=== PATIENT | female | born 1975 | race Caucasian/White ===

== ENCOUNTER 2021-10-09 07:37 | Outpatient (CLI) | payer OTHER, SELFPAY ==
--- NOTE | 2021-10-09 08:45 | W.ANESCHARGE ---
Anesthesia Charges Start Date/Time Anesthesia Start Date: 10/09/21 Anesthesia Start Time: 08:20 Stop Date/Time Anesthesia Stop Date: 10/09/21 Anesthesia Stop Time: 08:42 Summary Emergency: No
== END 2021-10-09 07:38 | disposition home or self-care (01) ==
LOC: OP CLINIC 07:38
PROVIDERS: PCP Family Medicine; Visit Provider Internal Medicine
DX: Z12.11 Encounter for screening for malignant neoplasm of colon (principal); K63.5 Polyp of colon
CPT/HCPCS: 45380; 811; 88305; J2704

== ENCOUNTER 2021-11-17 15:06 | Outpatient (CLI) | payer OTHER, SELFPAY ==
--- NOTE | 2021-11-17 15:20 | CRLHL7_ITS ---
For Patients: As a result of the Century Cures Act, medical imaging exams and procedure reports are released immediately into your electronic medical record. You may view this report before your referring provider. If you have questions, please contact your health care provider. BILATERAL MAMMOGRAM WITH COMPUTER-AIDED DETECTION AND TOMOSYNTHESIS TECHNIQUE: CC and MLO views were obtained. These mammographic images have been obtained using full-field digital technique. These mammographic images were interpreted with the benefit of computer-aided detection. Breast Tomosynthesis was used in this interpretation. COMPARISON FILM: 09/17/20, 09/17/19, 05/11/18. FINDINGS: The breasts are extremely dense, which lowers the sensitivity of mammography IMPRESSION: There is no radiographic evidence for malignancy. ASSESSMENT: BI-RADS Category 1: Negative RECOMMENDATION: Routine screening mammogram in 1 year. A lay language report of this examination will be provided to the patient. Ravinder Quiroz M.D. Diagnostic Radiologist [email or web address] DSM/bhe be/Dictated by: Ravinder Quiroz MD @ 11/18/2021 8:47:00 AM (Electronically Signed)
== END 2021-11-17 15:07 | disposition home or self-care (01) ==
LOC: MAMMO 15:07
PROVIDERS: PCP Family Medicine; Visit Provider Family Medicine
DX: Z12.31 Encounter for screening mammogram for malignant neoplasm of breast (principal)
CPT/HCPCS: 77063; 77067

== ENCOUNTER 2022-04-12 07:02 | Outpatient (CLI) | payer OTHER, SELFPAY ==
--- NOTE | 2022-04-12 07:15 | CRLHL7_ITS ---
For Patients: As a result of the Century Cures Act, medical imaging exams and procedure reports are released immediately into your electronic medical record. You may view this report before your referring provider. If you have questions, please contact your health care provider. INDICATION: abnormal uterine bleeding COMPARISON: none TECHNIQUE: 2D barillas scale and color Doppler images were acquired of the pelvis using a transabdominal and transvaginal approach. FINDINGS: Sonographic images demonstrate a normal size and lobular outer contour of the uterus. Uterus measures 8.7 cm in length by 4.8 cm in AP diameter by 5.9 cm in transverse dimension. The myometrium has a heterogeneous echotexture. Intramural fibroids are present measuring 2.5 x 2.2 x 2.9 cm in the posterior fundal myometrium, 1.7 x 1.4 x 1.5 cm in the anterior fundal myometrium and 2.3 x 2.1 x 2.2 cm arising from the fundal myometrium superiorly. The endometrial lining measures 4 mm in composite thickness. A trace amount of fluid is present within the endometrial canal. Incidental cervical nabothian cysts noted. The ovaries are not visualized. There are no suspicious fluid collections within the cul-de-sac. IMPRESSION: Multiple uterine fibroids measuring up to 2.9 cm. Trace fluid in the endometrial canal. Endometrial thickness 4 millimeters. Dictated by Ravinder Quiroz MD @ 04/12/2022 9:20:55 AM (Electronically Signed)
== END 2022-04-12 07:03 | disposition home or self-care (01) ==
LOC: US 07:03
PROVIDERS: PCP Family Medicine; Visit Provider Obstetrics & Gynecology
DX: N93.9 Abnormal uterine and vaginal bleeding, unspecified (principal); D25.9 Leiomyoma of uterus, unspecified
CPT/HCPCS: 76830; 76856

== ENCOUNTER 2022-04-20 08:31 | Outpatient (CLI) | payer OTHER, SELFPAY ==
[2022-04-20 11:35] LABS: Albumin* 4.5 g/dL (3.3-5.0); Chloride* 105 mmol/L (96-114)
[2022-04-20 11:36] LABS: Potassium* 4.2 mmol/L (3.6-5.1); Sodium* 140 mmol/L (135-149)
[2022-04-20 11:38] LABS: Alkaline Phosphatase* 69 U/L (40-150); Aspartate Amino Transferase* 31 U/L (12-35); Bilirubin Total* 0.6 mg/dL (0.1-1.5); Blood Urea Nitrogen* 19 mg/dL (5-24); Carbon Dioxide* 30 mmol/L (20-32); Cholesterol* 154 mg/dL (90-199); Creatinine* 0.8 mg/dL (0.5-1.5); Estimated Glomerular Filt Rate 90 ml/min; Triglycerides* 35 mg/dL (40-149)
[2022-04-20 11:39] LABS: Alanine Aminotransferase* 20 U/L (4-35); Calcium* 9.2 mg/dL (8.4-10.6); HDL Cholesterol* 87 mg/dL (>=50); LDL Cholesterol Calculated 60 mg/dL (<100)
[2022-04-20 11:49] LABS: Glucose* 87 mg/dL (60-115)
== END 2022-04-20 08:32 | disposition home or self-care (01) ==
LOC: NFLDREF 08:32
PROVIDERS: PCP Family Medicine; Visit Provider Obstetrics & Gynecology
DX: Z01.419 Encounter for gynecological examination (general) (routine) without abnormal findings (principal); N93.9 Abnormal uterine and vaginal bleeding, unspecified; R00.2 Palpitations
CPT/HCPCS: 80053; 80061; 84443

== ENCOUNTER 2022-11-23 15:59 | Outpatient (CLI) | payer OTHER, SELFPAY ==
--- NOTE | 2022-11-23 16:15 | CRLHL7_ITS ---
For Patients: As a result of the Cures Act, medical imaging exams and procedure reports are released immediately into your electronic medical record. You may view this report before your referring provider. If you have questions, please contact your health care provider. BILATERAL SCREENING MAMMOGRAM WITH COMPUTER-AIDED DETECTION AND TOMOSYNTHESIS TECHNIQUE: CC and MLO views were obtained. These mammographic images have been obtained using full-field digital technique. These mammographic images were interpreted with the benefit of computer-aided detection. Breast Tomosynthesis was used in this interpretation. COMPARISON FILM: 11/17/21, 09/17/20, 09/17/19. FINDINGS: The breasts are extremely dense, which lowers the sensitivity of mammography IMPRESSION: There is no radiographic evidence for malignancy. ASSESSMENT: BI-RADS Category 2: Benign RECOMMENDATION: Routine screening mammogram in 1 year. A lay language report of this examination will be provided to the patient. Ravinder Quiroz M.D. Diagnostic Radiologist [email or web address] Transcribed: 2:52 p.leatha hickey/Dictated by: Ravinder Quiroz MD @ 11/24/2022 11:43:00 AM (Electronically Signed)
== END 2022-11-23 16:00 | disposition home or self-care (01) ==
LOC: MAMMO 16:00
PROVIDERS: PCP Family Medicine; Visit Provider Family Medicine
DX: Z12.31 Encounter for screening mammogram for malignant neoplasm of breast (principal); R92.2 Inconclusive mammogram
CPT/HCPCS: 77063; 77067

== ENCOUNTER 2024-02-14 18:06 | Outpatient (CLI) | payer BC, SELFPAY ==
--- NOTE | 2024-02-14 18:20 | CRLHL7_ITS ---
For Patients: As a result of the Century Cures Act, medical imaging exams and procedure reports are released immediately into your electronic medical record. You may view this report before your referring provider. If you have questions, please contact your health care provider. BILATERAL SCREENING MAMMOGRAM WITH COMPUTER-AIDED DETECTION AND TOMOSYNTHESIS TECHNIQUE: CC and MLO views were obtained. These mammographic images have been obtained using full-field digital technique. These mammographic images were interpreted with the benefit of computer-aided detection. Breast Tomosynthesis was used in this interpretation. COMPARISON FILM: 11/23/22, 11/17/21, 09/17/20. FINDINGS: The breasts are heterogeneously dense, which may obscure small masses IMPRESSION: There is no radiographic evidence for malignancy. ASSESSMENT: BI-RADS Category 1: Negative RECOMMENDATION: Routine screening mammogram in 1 year. A lay language report of this examination will be provided to the patient. Ravinder Quiroz M.D. Diagnostic Radiologist [email or web address] Transcribed: 1:49 p.leatha hickey/Dictated by: Ravinder Quiroz MD @ 02/16/2024 11:30:00 AM (Electronically Signed)
== END 2024-02-14 18:07 | disposition home or self-care (01) ==
LOC: MAMMO 18:07
PROVIDERS: PCP Family Medicine; Visit Provider Nurse Practitioner Family
DX: Z12.31 Encounter for screening mammogram for malignant neoplasm of breast (principal); R92.333 Mammographic heterogeneous density, bilateral breasts
CPT/HCPCS: 77063; 77067

== ENCOUNTER 2024-04-02 13:08 | Outpatient (CLI) | payer OTHER, SELFPAY | END 2024-04-02 13:09 | disposition home or self-care (01) | PROVIDERS: PCP Family Medicine; Visit Provider Family Medicine | DX: H54.7 Unspecified visual loss (principal); Z13.29 Encounter for screening for other suspected endocrine disorder | CPT/HCPCS: 80053; 84443 ==

== ENCOUNTER 2024-04-18 10:37 | Outpatient (CLI) | payer OTHER, SELFPAY ==
[2024-04-25 00:57] LABS: HPV Source Cervical; HPV, High Risk by TMA Not Detected
== END 2024-04-18 10:38 | disposition home or self-care (01) ==
PROVIDERS: PCP Family Medicine; Visit Provider Obstetrics & Gynecology
DX: Z12.4 Encounter for screening for malignant neoplasm of cervix (principal); Z11.51 Encounter for screening for human papillomavirus (HPV)
CPT/HCPCS: 87624; 87625; 88141; 88142

== ENCOUNTER 2024-05-14 14:53 | Outpatient (CLI) | payer OTHER, SELFPAY | END 2024-05-14 14:54 | disposition home or self-care (01) | LOC: RAD 14:54 | PROVIDERS: PCP Family Medicine; Visit Provider Internal Medicine Cardiovascular Disease | DX: R55 Syncope and collapse (principal); I34.0 Nonrheumatic mitral (valve) insufficiency; R00.2 Palpitations | CPT/HCPCS: 93306 ==

== ENCOUNTER 2025-03-07 15:12 | Outpatient (CLI) | payer OTHER, SELFPAY ==
--- NOTE | 2025-03-07 15:20 | CRLHL7_ITS ---
For Patients: As a result of the Century Cures Act, medical imaging exams and procedure reports are released immediately into your electronic medical record. You may view this report before your referring provider. If you have questions, please contact your health care provider. INDICATION: BILATERAL SCREENING MAMMOGRAM, ASYMPTOMATIC 49 Y/O FEMALE COMPARISON: 02/14/2024, 11/23/2022, 11/17/2021 TECHNIQUE: Digital mammogram in CC and MLO projections including computer-aided detection (CAD) and tomosynthesis. BREAST COMPOSITION: The breasts are heterogeneously dense, which may obscure small masses. FINDINGS: No suspicious findings. ASSESSMENT: BI-RADS 2 Benign RECOMMENDATION: Annual screening mammogram. A lay language report of this examination will be provided to the patient. Dictated by: Ravinder Quiroz MD @ 03/08/2025 08:55:46 (Electronically Signed)
== END 2025-03-07 15:13 | disposition home or self-care (01) ==
LOC: MAMMO 15:12
PROVIDERS: PCP Family Medicine; Visit Provider Family Medicine
DX: Z12.31 Encounter for screening mammogram for malignant neoplasm of breast (principal); R92.333 Mammographic heterogeneous density, bilateral breasts
CPT/HCPCS: 77063; 77067